=== PATIENT | male | born 1960 | race Caucasian/White ===

== ENCOUNTER 2019-05-11 09:25 | Outpatient (CLI) | payer MEDICARE ==
--- NOTE | 2019-05-11 10:55 | MRI ---
Exam: MRI CERVICAL SPINE WITHOUT CONTRAST: HISTORY: Left arm pain. Bilateral shoulder tingling and numbness.. COMPARISON: None FINDINGS: Appropriate T1 marrow signal intensity of the cervical vertebra. Cervical spine vertebral body heigh t is maintained. No fracture. No significant STIR hyperintensity to suggest vertebral body edema or ligamentous injury. There is nonspecific fluid signal intensity just superficial to the C7 spinous pr ocess with minimal STIR hyperintensity in the adjacent soft tissues. Visualized brain parenchyma, cervical medullary junction, cervical cord and the upper thoracic cord h ave a normal size and signal intensity C2-C3: No significant central canal stenosis or significant neural foraminal narrowing C3-C4: Broad disc bulge contacts the ventral spinal cord and effaces the ventral subarachnoid space. Mild central canal stenosis. Mild right foraminal narrowing due to uncovertebral hypertrophy. Left neural foramen is patent. Left greater than right facet hypertrophy is noted. C4-C5: Broad-based disc bulge abuts the thecal sac. Ventral subarachnoid space is maintained. No sign ificant canal stenosis. Severe right foraminal narrowing due to uncovertebral and facet hypertrophy. Left neural foramen is patent. C5-C6: Broad-based disc osteophyte complex effaces the ventral subarachnoid space and mildly indents and deforms the cervical cord, without cord hyperintensity. Moderate central canal stenosis. Severe bilateral foraminal narrowing due to uncovertebral hypertrophy. C6-C7: Broad-based disc osteophyte complex abuts the thecal sac. Subarachnoid space is effaced and th ere is flattening and deformity the ventral cord, without cord hyperintensity. Moderate central canal stenosis. Severe bilateral foraminal narrowing due to uncal vertebral hypertrophy. C7-T1: No significant central canal stenosis. Right neural foramen is patent. Mild left foraminal andrea rowing due to uncal vertebral hypertrophy. IMPRESSION: 1. Degenerative changes of the cervical spine as detailed above. 2. Abnormal signal intensity and edema involving the soft tissues adjacent to the C7 spinous assess. Correlate for avulsion of the ligament of nuchae. Transcribed Date/Time: 05/11/2019 11:24 AM
--- NOTE | 2019-05-11 11:01 | MRI ---
MRI LUMBAR SPINE NONCONTRAST: HISTORY: Lumbago, sciatica, left-sided pain. COMPARISON: None FINDINGS: Type I and Type II Modic changes at the L1-L2 level. Otherwise, appropriate T1 marrow signal intensit y of the lumbar vertebra. Vertebral body height is maintained. No fracture. No significant STIR hyperintensity to suggest vertebral body edema or ligamentous injury T2 hyperintensity in the right renal cortex is too small to characterize. Appropriate signal intensity of the paraspinal muscles. Conus medullaris terminates at the inferior aspect of T12. The overall AP diameter is narrowed secondary to congenitally foreshortened pedicles. T12-L1:Adequate disc hydration. No significant central canal stenosis or neural foraminal narrowing L1-L2:Desiccation with severe loss of disc space height. Broad-based disc bulge, ligament flavum thic kening and facet hypertrophy result in mild central canal stenosis. Moderate right and mild to moderate left neural foraminal narrowing. L2-L3:Adequate disc hydration. Broad-based disc bulge, ligament flavum thickening and facet hypertrop hy result in mild central canal stenosis. Right neural foramen is minimally narrowed. There is mild left foraminal narrowing. L3-L4:Adequate disc hydration. Broad-based disc bulge, ligament flavum thickening and facet hypertrop hy result in mild/moderate canal stenosis. Moderate right and [id number] left neural foraminal narrowing. L4-L5:Adequate disc hydration. Broad-based disc bulge, ligament flavum thickening and facet hypertrop hy result in moderate central canal stenosis. Moderate to severe right and moderate left foraminal narrowing. L5-S1:Desiccation with severe loss of disc space height. There appears to be a right hemilaminotomy d efect. There is T1-T2 hyperintensity in the right subarticular zone, adjacent to the posterior margin of disc as well as adjacent to the traversing right S1 nerve root. Given intrinsic T1 and T2 h ypointensity, focal area of fat is suspected. However, the sagittal STIR sequences do demonstrate hyperintensity suggesting a component of possible fluid. Possibility of residual disc material or keturah n granulation tissue cannot be excluded. Based on the T1 noncontrast sequence, the fat in the right subareolar zone is obscured. There is presumed partial obscuration of the traversing right S1 nerve r oot. Postcontrast imaging would be beneficial. Moderate to severe right and moderate left neural foraminal narrowing IMPRESSION: 1. Overall decreased AP diameter of the central spinal canal due to congenitally foreshortened pedicl es. 2. Though there is adequate disc hydration at L2-L3, L3-L4 and L4-L5, there is evidence of central ca nal stenosis as described above. 3. Postsurgical change at L5-S1. Abnormal signal intensity in the right subarticular zone which may b e due to combination of fat, fluid, granulation tissue and disc material. Better interrogation with postcontrast imaging is recommended. Transcribed Date/Time: 05/11/2019 11:38 AM
== END 2019-05-11 09:26 | disposition home or self-care (01) ==
LOC: SCSMRI 09:25
PROVIDERS: ATTEND Nurse Practitioner Acute Care
DX: M54.42 Lumbago with sciatica, left side (principal); M79.602 Pain in left arm; M48.061 Spinal stenosis, lumbar region without neurogenic claudication; M47.812 Spondylosis without myelopathy or radiculopathy, cervical region; M79.89 Other specified soft tissue disorders; Z98.890 Other specified postprocedural states
CPT/HCPCS: 72141; 72148

== ENCOUNTER 2019-07-24 07:26 | Day surgery (SDC) | payer MEDICARE ==
[2019-07-21 13:55] VITALS: BMI 26.3
[2019-07-24 08:21] LABS: Hemoglobin 11.7 g/dL (14.0-18.0); Mean Corpuscular HGB CONC 32.8 g/dL (32.0-36.0); Mean Corpuscular Hemoglobin 29.5 pg (27.0-31.0); Mean Corpuscular Volume 89.9 fL (78.0-98.0); Platelet Count 428 thou/uL (130-400); RBC Distribution Width 12.8 % (11.5-14.5); Red Blood Cell (RBC) Count 3.96 mill/uL (4.70-6.10); White Blood Cell (WBC) Count 14.4 thou/uL (4.8-10.8)
[2019-07-24 08:36] LABS: Anion Gap 13 mmol/L (10-20); BUN (Urea Nitrogen) 23 mg/dL (8.4-25.7); Calc. Creatinine Clearance 110 mL/min (70-130); Calcium 9.1 mg/dL (7.8-10.44); Carbon Dioxide 23 mmol/L (22-29); Chloride 107 mmol/L (98-107); Estimated GFR-MDRD Greater than 90; Glucose 100 mg/dL (70-105); Potassium 4.1 mmol/L (3.5-5.1); Sodium 139 mmol/L (136-145)
[2019-07-24] MEDS ORDERED: Sodium Chloride 0.9% 10 ML ONE (09:17)
[2019-07-24] MEDS ORDERED: Fentanyl 100 MCG/2 ML VIAL ONE ×3 (09:56→11:29)
[2019-07-24] MEDS ORDERED: Morphine 4 MG/ML VIAL ONE (11:37)
[2019-07-24] MEDS ORDERED: Morphine 2 MG/ML SYRINGE ONE ×2 (11:48→12:13)
[2019-07-24] MEDS ORDERED: HYDROcodone/Acetaminophen 5/325 mg Tablet ONE (12:00)
--- NOTE | 2019-07-24 15:51 | EKG ---
Test Reason : PREOP Blood Pressure : / mmHG Vent. Rate : 066 BPM Atrial Rate : 066 BPM P-R Int : 162 ms QRS Dur : 098 ms QT Int : 418 ms P-R-T Axes : 008 071 058 degrees QTc Int : 438 ms Normal sinus rhythm Normal ECG Confirmed by TOMASA LUI ([id number]) on 07/24/2019 3:50:48 PM Referred By: ESTEPHANIA Confirmed By:TOMASA LUI
--- NOTE | 2019-07-24 16:58 | OP ---
DATE OF PROCEDURE: 07/24/2019 [employer]ASSROOM TECHNOLOGY TECHNICIAN: Evaristo Muhammad PA-C PROCEDURES PERFORMED: Anterior cervical diskectomy C5-C6 and C6-C7, interbody arthrodesis, intervertebral biomechanical device, local morselized autograft, demineralized bone matrix, anterior titanium instrumentation C5-C6 and C6-C7. DESCRIPTION OF PROCEDURE: The patient was brought to the operating room and intubated. He was positioned supine with head in modest extension on gel-filled donut. Incision was made in the right precervical area and dissected medial to the sternocleidomastoid muscle, identified the anterior cervical spine and the level was confirmed by x-ray. We debrided extensive anterior osteophytes, placed distraction across the disk spaces, and using the operative microscope and microdissection techniques, completely decompressed the spinal cord at C5-C6 and C6-C7. Next, the bony endplates were decorticated for the purpose of arthrodesis and appropriate-sized intervertebral biomechanical PEEK device was brought into the field. It was filled with demineralized bone matrix and local morselized autograft, and tapped in place securely at C5-C6 and C6-C7. Next, an anterior plate was brought into the field and secured to C5, C6, and C7 using two 14-mm screws at each level. The wound was then extensively irrigated. MAC hemostasis was secured. The wound was closed in anatomic layers. Job ID: [id number]
== END 2019-07-24 14:20 | disposition home or self-care (01) ==
LOC: SDC 07:26
PROVIDERS: ATTEND Neurological Surgery
PROC: 0RG20A0 Fusion of 2 or more Cervical Vertebral Joints with Interbody Fusion Device, Anterior Approach, Anterior Column, Open Approach (ICD-10-PCS; principal; 2019-07-24)
PROC: 0RG2070 Fusion of 2 or more Cervical Vertebral Joints with Autologous Tissue Substitute, Anterior Approach, Anterior Column, Open Approach (ICD-10-PCS; 2019-07-24)
PROC: 0RT30ZZ Resection of Cervical Vertebral Disc, Open Approach (ICD-10-PCS; 2019-07-24)
DX: M47.12 Other spondylosis with myelopathy, cervical region (principal); M48.02 Spinal stenosis, cervical region; M48.062 Spinal stenosis, lumbar region with neurogenic claudication; F17.200 Nicotine dependence, unspecified, uncomplicated; Z79.899 Other long term (current) drug therapy; Z88.8 Allergy status to other drugs, medicaments and biological substances; Z91.048 Other nonmedicinal substance allergy status
CPT/HCPCS: 76000; 80048; 85027; 93005; 93010; C1713; C1776; J0690; J2270; J3010; J3490

== ENCOUNTER 2019-08-15 15:23 | Outpatient (CLI) | payer MEDICARE ==
--- NOTE | 2019-08-15 15:58 | RAD ---
Cervical spine 4 views HISTORY: Surgery. Follow-up. FINDINGS: Anterior fixation plate and screws in place at the C5-6-7 levels. No perihardware lucency. Metallic markers associated with the interbody fusion material within the confines of the disc spaces. Vertebral body heights and alignment are maintained. No acute fracture or dislocation. IMPRESSION: Anterior operative fixation cervical spine. No evidence of hardware complication.
== END 2019-08-15 15:24 | disposition home or self-care (01) ==
LOC: TBSIIMAG 15:23
PROVIDERS: ATTEND Neurological Surgery
DX: M47.12 Other spondylosis with myelopathy, cervical region (principal); Z98.890 Other specified postprocedural states
CPT/HCPCS: 72040

== ENCOUNTER 2021-09-18 10:41 | Outpatient (CLI) | payer MEDICARE ==
[2021-09-18 12:01] LABS: #Basophils 0.1 10x3/uL (0.0-0.2); #Eosinphils 0.3 10x3/uL (0.0-0.5); #Neutrophils 8.6 10x3/uL (1.5-8.4); %Basophils 0.9 % (0.0-2.0); %Eosinophils 2.5 % (0.0-6.0); %Lymphocytes 14.2 % (18.0-47.0); %Monocytes 8.4 % (0.0-10.0); %Neutrophils 73.7 % (40.0-75.0); Hemoglobin 14.3 g/dL (13.5-17.5); Mean Corpuscular HGB CONC 33.7 g/dL (32.0-36.0); Mean Corpuscular Hemoglobin 30.6 pg (27.0-33.0); Mean Corpuscular Volume 90.6 fl (81.2-95.1); Mean Platelet Volume 10.8 fl (7.4-10.4); Platelet Count 362 10x3/uL (150-450); RBC Distribution Width 12.9 % (11.5-14.5); Red Blood Cell (RBC) Count 4.68 10x6/uL (4.32-5.72); White Blood Cell (WBC) Count 11.7 10x3/uL (3.5-10.5)
[2021-09-18 22:42] LABS: SARS-CoV-2 PCR by NAA Not Detected (NotDetected)
== END 2021-09-18 10:42 | disposition home or self-care (01) ==
LOC: LABBT 10:41
PROVIDERS: ATTEND Orthopaedic Surgery Hand Surgery
DX: Z01.812 Encounter for preprocedural laboratory examination (principal); Z20.822 Contact with and (suspected) exposure to COVID-19
CPT/HCPCS: 85025; U0003; U0005

== ENCOUNTER 2021-09-22 09:47 | Day surgery (SDC) | payer MEDICARE ==
[2021-09-16 12:04] VITALS: BMI 25.0
[2021-09-22] MEDS ORDERED: ceFAZolin 2 GM/DEX 5% 100 ML BAG ONE (10:20)
[2021-09-22] MEDS ORDERED: Neomycin-Polymyxin 1 ML AMP ONE (13:33)
[2021-09-22] MEDS ORDERED: Bupivacaine PF 0.5% 30 ML VIAL ONE (13:33)
[2021-09-22] MEDS ORDERED: Bacitracin Zinc Ointment 30 gm TUBE ONE (13:33)
[2021-09-22] MEDS ORDERED: Midazolam HCl 2 mg/2 ml Vial ONE (14:06)
[2021-09-22] MEDS ORDERED: Fentanyl 100 MCG/2 ML VIAL ONE ×2 (14:06→15:32)
[2021-09-22] MEDS ORDERED: Betamet Acet/Betamet Na Ph 30 MG/5 ML VIAL ONE (14:37)
[2021-09-22] MEDS ORDERED: SUGAMMADEX SODIUM 200 MG/2 ML VIAL ONE (14:47)
[2021-09-22] MEDS ORDERED: Morphine Sulfate 2 MG/ML SYRINGE SLOW IVP PRN (15:16)
[2021-09-22] MEDS ORDERED: Promethazine HCl 25 MG/ML VIAL IVPB PRN (15:16)
[2021-09-22] MEDS ORDERED: Ondansetron HCl/PF 4 MG/2 ML Vial IVP PRN (15:16)
[2021-09-22] MEDS ORDERED: Promethazine HCl 25 MG/ML VIAL IM PRN (15:16)
[2021-09-22] MEDS ORDERED: Ketorolac Tromethamine 30 MG/ML VIAL ONE (15:22)
[2021-09-22] MEDS ORDERED: hydrALAZINE 20 MG/ML VIAL ONE (15:49)
== END 2021-09-22 17:30 | disposition home or self-care (01) ==
LOC: SDC 09:47
PROVIDERS: ATTEND Orthopaedic Surgery Hand Surgery
PROC: 01N40ZZ Release Ulnar Nerve, Open Approach (ICD-10-PCS; principal; 2021-09-22)
PROC: 0HBFXZZ Excision of Right Hand Skin, External Approach (ICD-10-PCS; 2021-09-22)
DX: G56.81 Other specified mononeuropathies of right upper limb (principal); L72.0 Epidermal cyst; Z79.899 Other long term (current) drug therapy; Z88.8 Allergy status to other drugs, medicaments and biological substances; Z91.040 Latex allergy status; Z91.048 Other nonmedicinal substance allergy status; Z98.1 Arthrodesis status
CPT/HCPCS: 88304; J0360; J0702; J1885; J2250; J3010; S0020